=== PATIENT | male | born 1960 ===

== ENCOUNTER 2019-12-16 05:21 | Outpatient (CLI) | payer SELFPAY | END 2019-12-16 05:22 | disposition EMS.NT | LOC: EMS 05:21 | PROVIDERS: ATTEND Surgery | DX: R41.82 Altered mental status, unspecified (principal); R73.09 Other abnormal glucose ==

== ENCOUNTER 2023-08-09 17:09 | Outpatient (CLI) | payer SELFPAY | END 2023-08-09 23:59 | disposition EMS.NT | LOC: EMS 17:09 | DX: Z04.1 Encounter for examination and observation following transport accident (principal); E10.649 Type 1 diabetes mellitus with hypoglycemia without coma ==